=== PATIENT | female | born 1985 | race Caucasian/White ===

== ENCOUNTER → 2016-12-11 | Outpatient (CLI) | payer BC ==
[~2016-12-11] MED LIST: IBUPROFEN600 MG PO
[2016-12-11 10:36] LABS: BUN/CREATININE RATIO 14 (0-10)
== END ==
LOC: LAB 09:29
PROVIDERS: Urology
DX: N20.1 Calculus of ureter (principal)
CPT/HCPCS: 36415; 80048; 83735; 84100; 84550

== ENCOUNTER 2017-01-18 09:48 | Emergency (ER) | payer BC ==
[2017-01-18 10:32] LABS: HEMOGLOBIN 14.5 gm/dl (12.3-15.3); RED BLOOD COUNT 4.87 M/UL (4.00-5.10); WHITE BLOOD COUNT 8.8 K/UL (4.5-11.0)
[2017-01-18 10:52] LABS: BUN/CREATININE RATIO 18 (0-10)
== END 2017-01-18 14:00 | disposition home or self-care (01) ==
LOC: ER1 09:48
PROVIDERS: Emergency Medicine
DX: R07.89 Other chest pain (principal); R42 Dizziness and giddiness; R53.1 Weakness; R00.2 Palpitations; R06.02 Shortness of breath; R11.2 Nausea with vomiting, unspecified
CPT/HCPCS: 36415; 71010; 80053; 81001; 82550; 82553; 83874; 84443; 84484; 84703; 85025; 85379; 85610; 93005; 96374; 96375; 99291; J1200; J2405; J7050; Q9963

== ENCOUNTER → 2017-02-11 | Outpatient (CLI) | payer BC | LOC: HEART 5 09:41 | DX: I49.3 Ventricular premature depolarization (principal); R07.9 Chest pain, unspecified; R00.2 Palpitations; R00.0 Tachycardia, unspecified; I10 Essential (primary) hypertension; I08.1 Rheumatic disorders of both mitral and tricuspid valves | CPT/HCPCS: 93306 ==